=== PATIENT | female | born 1940 | race Caucasian/White ===

== ENCOUNTER 2022-07-12 14:58 | Emergency (ER) | payer BC ==
[~2022-07-12] VITALS: Ht 165.1 cm; Wt 53.1 kg
--- NOTE | 2022-07-12 15:10 | NUR ---
tripped and fall, lac bridge of nose, mouth, and abrasion on the r arm
[2022-07-12] MEDS ORDERED: BACI/NEOM/POLY B OINT PKT 1 UDPKT PACKET TP ONE (15:30)
[2022-07-12] MEDS ORDERED: TDAP [DIPH/PERTUSSIS/TET] 0.5 ML VIAL IM ONE ×2 (15:30→15:33)
--- NOTE | 2022-07-12 15:30 | NUR ---
pt taken to ct
--- NOTE | 2022-07-12 15:30 | NUR ---
pt taken to CT
[2022-07-12] MEDS ORDERED: BACI/NEOM/POLY B OINT PKT 1 UDPKT PACKET ONE (15:33)
--- NOTE | 2022-07-12 15:35 | NUR ---
tdap given as ordered , tech at [facility] for wound cleaning
[2022-07-12] MEDS ORDERED: ACETAMINOPHEN 325 MG TABLET PO ONE (17:30)
[2022-07-12 22:12] VITALS: BP 176/97
== END 2022-07-12 22:14 | disposition home or self-care (01) ==
LOC: ER 15:03
DX: S61.411A Laceration without foreign body of right hand, initial encounter (principal); S00.31XA Abrasion of nose, initial encounter; R51.9 Headache, unspecified; I10 Essential (primary) hypertension; W01.0XXA Fall on same level from slipping, tripping and stumbling without subsequent striking against object, initial encounter; Y93.89 Activity, other specified; Y92.099 Unspecified place in other non-institutional residence as the place of occurrence of the external cause; Y99.8 Other external cause status
CPT/HCPCS: 99284; 70450; 90471; 90715; 70486; A6403 ×2